=== PATIENT | male | born 1950 | race African-American/Black ===

== ENCOUNTER 2019-05-30 11:32 | Emergency (ER) | payer OTHER ==
[~2019-05-30] VITALS: Ht 182.9 cm; Wt 93.4 kg
[2019-05-30 11:36] VITALS: Ht 182.9 cm; Wt 93.4 kg
[2019-05-30 12:23] LABS: BASOPHIL % 0.4 % (0-2); PLATELET COUNT 238 x10^3mcL (130-400)
[2019-05-30 12:43] LABS: RED CELL DISTRIBUTION WIDTH 17.9 % (11.5-14.5)
[2019-05-30 13:06] LABS: ALBUMIN 3.6 g/dL (3.4-5.0); BILIRUBIN TOTAL 0.4 mg/dL (0.20-1.00); CALCIUM 9.1 mg/dL (8.5-10.1); CREATININE SERUM 7.2 mg/dL (0.7-1.3); POTASSIUM SERUM 6.5 mmol/L (3.5-5.1); TOTAL PROTEIN, SERUM 8.3 g/dL (6.4-8.2)
[2019-05-30 14:53] VITALS: BP 172/83
== END 2019-05-30 14:53 | disposition home or self-care (01) ==
LOC: ED 11:32
DX: E87.5 Hyperkalemia (principal); I12.0 Hypertensive chronic kidney disease with stage 5 chronic kidney disease or end stage renal disease; E11.22 Type 2 diabetes mellitus with diabetic chronic kidney disease; N18.6 End stage renal disease; Z88.2 Allergy status to sulfonamides
CPT/HCPCS: 36600; 82962; J0360; J1815; J3490